=== PATIENT | female | born 1990 | race Caucasian/White ===

== ENCOUNTER 2017-12-23 10:40 | Emergency (ER) | payer SELFPAY ==
[2017-12-23 10:53] VITALS: BP 118/74
--- NOTE | 2017-12-23 12:30 | Emergency Department Report ---
ED Headache HPI - General Chief Complaint: Headache Stated Complaint: NON STOP HEAD ACHE Time Seen by Provider: 12/23/17 12:05 Source: patient - History of Present Illness Initial Comments: Patient is 27 years old female with no significant past medical history. Patient presented to the ER complaining of headache since last night. The patient describes her headache is frontal, throbbing. Patient stated that she had history of headache before but this is different because she took Excedrin Migraine and it did not help. Patient denied any fever or neck pain. Patient also denied any weakness numbness or tingling sensation. Timing/Duration: 24 hours Quality: moderate Head Injury Location: frontal Recent Head Trauma: no recent headache/trauma Associated Symptoms: denies symptoms Allergies/Adverse Reactions: Allergies No Known Allergies Allergy (Verified 12/23/17 10:50) Home Medications: Ambulatory Orders Acetaminophen/Codeine [Tylenol #3] 1 tab PO Q6H PRN #15 tab 05/07/15 Ciprofloxacin HCl [Ciprofloxacin TAB] 500 mg PO Q12HR #14 tab 05/07/15 Ondansetron [Zofran Odt] 4 mg PO TID #9 tab.rapdis 05/07/15 ED Review of Systems ROS: Stated complaint: NON STOP HEAD ACHE Other details as noted in HPI Comment: All other systems reviewed and negative Constitutional: denies: chills, fever Respiratory: denies: cough, orthopnea, shortness of breath, SOB with exertion, SOB at rest, wheezing Cardiovascular: denies: chest pain, palpitations, dyspnea on exertion Gastrointestinal: denies: abdominal pain, nausea, vomiting Neurological: headache. denies: weakness, numbness, paresthesias, confusion, abnormal gait, vertigo ED Past Medical Hx - Past Medical History Previous Medical History?: No - Surgical History Past Surgical History?: No - Social History Smoking Status: Never Smoker Substance Use Type: None - Medications Home Medications: Home Medications Medication Instructions Recorded Confirmed Last Taken Type Acetaminophen/Codeine [Tylenol #3] 1 tab PO Q6H PRN #15 tab 05/07/15 Unknown Rx Ciprofloxacin HCl [Ciprofloxacin 500 mg PO Q12HR #14 tab 05/07/15 Unknown Rx TAB] Ondansetron [Zofran Odt] 4 mg PO TID #9 tab.rapdis 05/07/15 Unknown Rx ED Physical Exam - General Limitations: No Limitations General appearance: alert, in no apparent distress - Head Head exam: Present: atraumatic, normocephalic, normal inspection - Eye Eye exam: Present: normal appearance, PERRL - ENT ENT exam: Present: normal exam, normal orophraynx, mucous membranes moist - Neck Neck exam: Present: normal inspection, full ROM. Absent: tenderness, meningismus, lymphadenopathy, thyromegaly - Respiratory Respiratory exam: Present: normal lung sounds bilaterally. Absent: respiratory distress, wheezes, rales, rhonchi, stridor, chest wall tenderness, accessory muscle use, decreased breath sounds, prolonged expiratory - Cardiovascular Cardiovascular Exam: Present: regular rate, normal rhythm, normal heart sounds - GI/Abdominal GI/Abdominal exam: Present: soft, normal bowel sounds. Absent: distended, tenderness, guarding, rebound, rigid, organomegaly, mass, bruit, pulsatile mass , hernia - Extremities Exam Extremities exam: Present: normal inspection, full ROM, normal capillary refill - Back Exam Back exam: Present: normal inspection, full ROM. Absent: tenderness, CVA tenderness (R), CVA tenderness (L), muscle spasm, paraspinal tenderness, vertebral tenderness, rash noted - Neurological Exam Neurological exam: Present: alert, oriented X3, CN II-XII intact, normal gait, reflexes normal - Skin Skin exam: Present: warm, intact, normal color ED Course Vital Signs 12/23/17 10:50 Temperature 98.9 F Pulse Rate 94 H Respiratory 16 Rate Blood Pressure 118/74 O2 Sat by Pulse 96 Oximetry ED Medical Decision Making - Radiology Data Radiology results: report reviewed Referring Physician: BEST MCKEON Patient Name: MOMO GOLDEN Date of : 1990 Sex: Female Report Date: 2017-12-23 Report Status: Finalized Findings [facility] [address] [place] [address] Cat Scan Report Signed Patient: MOMO GOLDEN MR#: [id number] : 1990 Acct:[id number] Age/Sex: 27 / F ADM Date: 12/23/17 Loc: ED Attending Dr: Ordering Physician: BEST MCKEON Date of Service: 12/23/17 Procedure(s): CT head/brain wo con Accession Number(s): [id number] cc: BEST MCKEON CT HEAD WITHOUT CONTRAST: HISTORY: Headache. TECHNIQUE: Sequential 2.5mm CT images. COMPARISON: none. FINDINGS: Cerebral Parenchyma: Within normal limits. Cerebellum: Within normal limits. Brainstem: Within normal limits. Ventricles: Normal. Sella: Normal. Extra-axial spaces: Normal. Basal Cisterns: Normal. Intracranial Hemorrhage: None. Midline Shift: None. Calvarium: Normal. Sinuses: Normal. Mastoid Air Cells: Normal. Visualized Orbits: Normal. IMPRESSION: Cranial CT scan within normal limits. Transcribed By: TTR Dictated By: YOAV BLOOM JR, MD Electronically Authenticated By: YOAV BLOOM JR, MD Signed Date/Time: 12/23/171506 DD/ 06 TD/TT: 12/23/171506 Critical care attestation.: If time is entered above; I have spent that time in minutes in the direct care of this critically ill patient, excluding procedure time. ED Disposition Clinical Impression: Headache Disposition: DC-01 TO HOME OR SELFCARE Is pt being admited?: No Condition: Stable Instructions: Acute Headache (ED) Referrals: PRIMARY CARE, [Primary Care Provider] - 3-5 Days
[2017-12-23 13:39] LABS: Bacteria,Urine 1+ /HPF (Negative); Bilirubin,Urine NEG (Negative); Blood,Urine MOD (Negative); Color,Urine Yellow (Yellow); Mucus,Urine 3+ /HPF; Protein,Urine <15 mg/dL mg/dL (Negative); Urobilinogen,Urine < 2.0 mg/dL (<2.0)
[2017-12-23 13:41] LABS: HCG Qualitative,Urine Negative (Negative)
--- NOTE | 2017-12-23 15:08 | Cat Scan Report ---
CT HEAD WITHOUT CONTRAST: HISTORY: Headache. TECHNIQUE: Sequential 2.5mm CT images. COMPARISON: none. FINDINGS: Cerebral Parenchyma: Within normal limits. Cerebellum: Within normal limits. Brainstem: Within normal limits. Ventricles: Normal. Sella: Normal. Extra-axial spaces: Normal. Basal Cisterns: Normal. Intracranial Hemorrhage: None. Midline Shift: None. Calvarium: Normal. Sinuses: Normal. Mastoid Air Cells: Normal. Visualized Orbits: Normal. IMPRESSION: Cranial CT scan within normal limits.
[2017-12-23] MEDS ORDERED: TORADOL IM ONE (15:59)
== END 2017-12-23 16:25 | disposition home or self-care (01) ==
LOC: ED 10:40
DX: R51 Headache (principal)
CPT/HCPCS: 70450; 81001; 81025; 96372; 99284; J1885